=== PATIENT | female | born 1960 | race Caucasian/White ===

== ENCOUNTER 2018-09-21 15:58 | Outpatient (REF) | payer MEDICAID, SELFPAY ==
[2018-09-21 21:40] LABS: Anion Gap 13.7 mmol/L (3-11); BUN 26 mg/dL (7-18); CO2 21.3 mmol/L (21.0-32.0); CREATININE 0.85 mg/dL (0.55-1.02); Calcium 8.8 mg/dL (8.5-10.1); Chloride 102 mmol/L (98-107); Glucose 75 mg/dL (70-100); Potassium 4.3 mmol/L (3.5-5.1); Sodium 137 mmol/L (136-145)
[2018-09-21 22:03] LABS: Hemoglobin A1C 7.1 % (4.5-6.2)
== END 2018-09-21 16:18 ==
LOC: NCHCN 15:58
PROVIDERS: PCP Physician Assistant Medical; Visit Provider Physician Assistant Medical
DX: R79.89 Other specified abnormal findings of blood chemistry (principal); E10.9 Type 1 diabetes mellitus without complications
CPT/HCPCS: 80048; 83036

== ENCOUNTER 2019-01-31 11:29 | Day surgery (SDC) | payer MEDICAID, SELFPAY ==
[2019-01-31 11:54] VITALS: BP 115/70; PULSE 90; RESP 18; TEMP 36.7; O2SAT 95
[2019-01-31 12:00] VITALS: BP 115/70; PULSE 90; RESP 18; TEMP 36.7; O2SAT 95
[2019-01-31] MEDS: Lidocaine 2% Multi-Dose 50 ML VIAL (13:12)
--- NOTE | 2019-01-31 13:25 | W.PM.DSUDISC ---
Discharge Plan Disposition Patient Disposition: HOME Condition: Improving Discharge Details Attending Provider: Trace East Primary Care Provider: Gabriela Parham Home Meds and New Rx's Prescriptions: No Action lisinopril 20 MG tablet 20 mg PO DAILY RF: 0 metformin 500 MG tablet extended release 24 hr 1,000 mg PO BID RF: 0 Lantus Solostar U-100 Insulin 100 UNIT/1 ML insulin pen 50 units SQ QAM RF: 0 Lantus Solostar U-100 Insulin 100 UNIT/1 ML insulin pen 60 units SQ qhs RF: 0 ibuprofen 800 MG tablet 800 mg PO PRN PRN (Reason: Pain) RF: 0 hydrochlorothiazide 12.5 MG capsule 12.5 mg PO DAILY RF: 0 Jardiance 10 mg Tablet PO QAM RF: 0 Discharge Instructions Additional Instructions: Keep your right hand elevated above heart level as needed to help control pain and swelling. You may exercise your ring and all of the fingers of your right hand as comfort allows. For showering tomorrow, cover your hand with a plastic bag and a rubber band over the forearm to keep the bandages dry for the first 48 hours. On , 02/02/19, you may get your wound wet in the shower with soap and water. Gently pat the stitch dry and cover it with a bandaid or gauze. Take tylenol, advil or aleve for pain. Rollow-up with Dr. East in 1 week for stitch removal. resume normal use as tolerated. Take tylenol advil oir aleve for discomfort. Follow-up with Dr. East for stitch removal. Activity:: Elevate Remove Dressings/Wound Care:: 48 hours Diet:: As Tolerated Discharge Orders Discharge Orders: Discharge Order (Routine); Ordered 01/31/19 Ordered By: Trace East
--- NOTE | 2019-01-31 15:43 | ROE_ITS ---
DATE OF PROCEDURE: January 31, 2019 PREOPERATIVE DIAGNOSIS: Trigger finger right ring finger. POSTOPERATIVE DIAGNOSIS: Trigger finger right ring finger. PROCEDURE: Release A1 sekou right ring finger. SURGEON: Trace East M.D. REVIEW ANALYST: Nurse ANESTHETIC: Two percent lidocaine plain. PREP: ChloraPrep INDICATIONS: This patient has developed triggering of her right ring finger. She has previously und ergone left middle trigger finger release. 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 Exam was cons istent with trigger finger. This was disabling to her. I recommended release and we reviewed the pl anned operative procedure which she was very familiar with. OPERATIVE PROCEDURE: She was met in the Day Surgery holding area and I marked her right ring finger with the surgical skin marker. She was then taken to the procedure room where her right upper extrem ity was prepped with ChloraPrep. This was done after sterile drapes were applied. Two percent lidoc nasir was then used to create an anesthetic wheal over the metacarpophalangeal joint region of the rin g finger. After ensuring adequate anesthesia, I then made a transverse incision directly over the A1 sekou. Subcutaneous tissues were split bluntly with Littler scissors. Ragnell retractors were ins erted. The flexor tendon sheath was identified. It was incised with a 15 scalpel blade and then com pleted with Littler scissors. A small amount of synovial fluid was encountered, verifying inflammati on along the flexor tendon sheath. The patient was then asked to flex and extend her ring finger. S he could do so without any further triggering and without any encumbrances. She was able to demonstr ate full range of motion, bringing the fingertip to the distal palmar crease. I then irrigated the w ound with sterile saline and closed the skin with a single suture of #5-0 Ethilon in a horizontal mat tress fashion. The wound was dressed with Xeroform gauze, 4x4s, and a 2-inch conforming gauze bandag e. She was taken to the outpatient Recovery Room in satisfactory condition, tolerating the procedure well.
== END 2019-01-31 13:46 | disposition home or self-care (01) ==
PROVIDERS: PCP Physician Assistant Medical; Visit Provider Orthopaedic Surgery
PROC: (CPT 26055; principal; 2019-01-31 13:00)
DX: M65.341 Trigger finger, right ring finger (principal); E11.9 Type 2 diabetes mellitus without complications; Z79.4 Long term (current) use of insulin
CPT/HCPCS: 26055

== ENCOUNTER 2019-03-22 15:44 | Outpatient (REF) | payer MEDICAID, SELFPAY ==
[2019-03-22 21:05] LABS: ALT 15 U/L (12-78); AST 10 U/L (15-37); Albumin 3.5 g/dL (3.4-5.0); Alkaline Phosphatase 72 U/L (46-116); Anion Gap 12.4 mmol/L (3-11); BUN 18 mg/dL (7-18); Bilirubin, Total 0.3 mg/dL (0.2-1.0); CO2 23.6 mmol/L (21.0-32.0); CREATININE 0.78 mg/dL (0.55-1.02); Calcium 8.8 mg/dL (8.5-10.1); Chloride 104 mmol/L (98-107); Cholesterol 195 mg/dL (50-200); Glucose 92 mg/dL (70-100); HDL Cholesterol 39 mg/dL (40-60); LDL CHOLESTEROL 116 mg/dL (<100); Potassium 4.2 mmol/L (3.5-5.1); Sodium 140 mmol/L (136-145); Total Protein 6.8 g/dL (6.4-8.2); Triglyceride 259 mg/dL (30-150)
== END 2019-03-22 16:04 ==
LOC: NCHCN 15:44
PROVIDERS: PCP Physician Assistant Medical; Visit Provider Physician Assistant Medical
DX: E10.9 Type 1 diabetes mellitus without complications (principal); Z79.4 Long term (current) use of insulin
CPT/HCPCS: 80053; 80061; 83721